=== PATIENT | female | born 1955 | race Two or more races ===

== ENCOUNTER 2021-12-20 14:08 | Outpatient (CLI) | payer OTHER | END 2021-12-20 14:16 | disposition home or self-care (01) | LOC: RAD 14:08 | PROVIDERS: ATTEND Internal Medicine | DX: Z01.810 Encounter for preprocedural cardiovascular examination (principal); I10 Essential (primary) hypertension; M54.50 Low back pain, unspecified; E03.9 Hypothyroidism, unspecified; E78.9 Disorder of lipoprotein metabolism, unspecified; E55.9 Vitamin D deficiency, unspecified; J40 Bronchitis, not specified as acute or chronic; J44.9 Chronic obstructive pulmonary disease, unspecified; F17.200 Nicotine dependence, unspecified, uncomplicated; Z12.31 Encounter for screening mammogram for malignant neoplasm of breast; Z13.820 Encounter for screening for osteoporosis ==

== ENCOUNTER 2022-11-30 06:48 | Emergency (ER) | payer OTHER ==
[~2022-11-30] VITALS: Ht 160 cm; Wt 77.1 kg
[2022-11-30] MEDS ORDERED: PROAIR RESPICL90 MCG (07:26)
[2022-11-30] MEDS ORDERED: CIPRO500 MG PO (09:45)
[2022-11-30] MEDS ORDERED: PYRIDIUM DS200 MG PO (09:45)
== END 2022-11-30 09:55 | disposition home or self-care (01) ==
LOC: ER 06:48
DX: N39.0 Urinary tract infection, site not specified (principal); Z91.041 Radiographic dye allergy status; J44.9 Chronic obstructive pulmonary disease, unspecified; F10.20 Alcohol dependence, uncomplicated

== ENCOUNTER 2023-01-18 09:30 | Outpatient (CLI) | payer OTHER ==
[~2023-01-18 09:30] MED LIST: CIPRO500 MG PO; PROAIR RESPICL90 MCG; PYRIDIUM DS200 MG PO
== END 2023-01-18 09:37 | disposition home or self-care (01) ==
LOC: MAMO-SONO 09:30
PROVIDERS: ATTEND Internal Medicine
DX: N60.11 Diffuse cystic mastopathy of right breast (principal); Z12.31 Encounter for screening mammogram for malignant neoplasm of breast

== ENCOUNTER → 2023-03-17 | Outpatient (CLI) | payer OTHER | END | disposition home or self-care (01) | LOC: SONOGRAMA 13:12 | PROVIDERS: ATTEND Surgery | DX: C50.111 Malignant neoplasm of central portion of right female breast (principal); Z17.0 Estrogen receptor positive status [ER+] ==

== ENCOUNTER 2023-06-14 07:59 | Outpatient (CLI) | payer OTHER | END 2023-06-14 08:03 | disposition home or self-care (01) | LOC: NUCLEAR 07:59 | PROVIDERS: ATTEND Internal Medicine Hematology & Oncology | DX: C50.411 Malignant neoplasm of upper-outer quadrant of right female breast (principal); Z17.0 Estrogen receptor positive status [ER+] | CPT/HCPCS: 78815; A9552 ==

== ENCOUNTER 2023-08-04 06:33 | Day surgery (SDC) | payer OTHER ==
[2023-08-02 12:04] LABS: HEMATOCRIT 46.5 % (36.0-45.00); HEMOGLOBIN 15.9 g/dL (12.0-15.00); MEAN CELL VOLUME 100.4 fL (80.00-100.00); MEAN CORPUSCULAR HEMOGLOBIN 34.4 pg (27.00-32.0); MEAN CORPUSCULAR HGB CONC 34.2 g/dl (32.0-36.0); PLATELET COUNT 177 K/uL (150-450); RED BLOOD COUNT 4.63 M/uL (4.00-6.00); RED CELL DISTRIBUTION WIDTH 12.3 % (11.5-14.5)
[2023-08-02 12:05] LABS: URINE APPEARANCE Clear; URINE BILIRRUBIN Negative (NEGATIVE); URINE COLOR Yellow; URINE GLUCOSE Negative (NEGATIVE); URINE LEUKOCYTE Negative; URINE NITRATE Negative; URINE PROTEIN Negative (NEGATIVE)
[2023-08-02 12:06] LABS: URINE BACTERIA 385.5 uL (0.0-1933); URINE EPITHELIAL CELLS 91.4 uL (0.0-38.8); URINE RBC 18.6 uL (0.0-20.8); URINE WBC 4.6 uL (0.0-23.2)
[2023-08-02 12:13] LABS: URINE BLOOD TRACES
[2023-08-02 12:35] LABS: INR 1.03; PROTHROMBIN TIME 10.8 SECONDS (9.0-11.5)
[2023-08-02 12:49] LABS: ALBUMIN 3.5 gm/dL (3.4-5.0); BILIRUBIN TOTAL 0.63 mg/dL (0.3-1.2); CALCIUM 9.1 mg/dL (8.5-10.1); CREATININE SERUM 0.76 mg/dL (0.55-1.02); GFR 75.68; GLOBULINA 4.2 G/DL (2.4-3.5); POTASSIUM 4.58 mEq/L (3.5-5.1); TOTAL PROTEIN 7.7 gm/dL (6.4-8.2)
[~2023-08-04] VITALS: Ht 160 cm; Wt 76.7 kg
[2023-08-04] MEDS ORDERED: TRAM1TAB98 PO (12:22)
== END 2023-08-04 15:40 | disposition home or self-care (01) ==
LOC: CIR.AMB 06:33
PROVIDERS: ATTEND Surgery
DX: C50.911 Malignant neoplasm of unspecified site of right female breast (principal); Z91.041 Radiographic dye allergy status

== ENCOUNTER 2023-08-14 09:28 | Outpatient (CLI) | payer OTHER ==
[~2023-08-14 09:28] MED LIST changes: +TRAM1TAB98 PO
== END 2023-08-14 09:29 | disposition home or self-care (01) ==
LOC: NUCLEAR 09:28
PROVIDERS: ATTEND Surgery
DX: M79.602 Pain in left arm (principal)

== ENCOUNTER 2023-08-19 14:55 | Emergency (ER) | payer OTHER ==
[~2023-08-19] VITALS: Ht 160 cm; Wt 72.6 kg
[2023-08-19] MEDS ORDERED: TRELEGY ELLIPT1 EAC1 IH (15:25)
== END 2023-08-19 17:35 | disposition home or self-care (01) ==
LOC: ER 14:55
DX: S61.451A Open bite of right hand, initial encounter (principal); W54.0XXA Bitten by dog, initial encounter; Y93.89 Activity, other specified; Y92.89 Other specified places as the place of occurrence of the external cause; Y99.8 Other external cause status

== ENCOUNTER 2023-08-29 09:49 | Inpatient (IN) | payer OTHER ==
[~2023-08-29] VITALS: Ht 160 cm; Wt 72.6 kg
[~2023-08-29 09:49] MED LIST changes: +TRELEGY ELLIPT1 EAC1 IH
--- NOTE | 2023-08-29 10:02 | NUR ---
SE RECIBE FEMINA ALERTA Y ORIENTADA X3 EN AMBULANCIA QUIEN REFIERE VOMITOS Y MOLESTIA AL TRAGAR. PTE DE CANCER DE MAMA, AGUSTÍN GARCIA PRIMERA QUIMIOTERAPIA EL . PTE DE DR MIRZA MCLEAN. SE MIDEN S/V Y SE UBICA.
--- NOTE | 2023-08-29 10:12 | NUR ---
RN TERRAZAS EDUCA A PTE SOBRE TX A RECIBIR EN EL AREA LA MISMA REFIERE ENTENDER, SE REALIZAN MUESTRAS AYLA ORDEN MEDICA Y SE ENVIAN DE FORMA INMEDIATA. SE CANALIZA PTE Y SE COOCAN MEDICAMENTOS IVFLUID POR ORDEN MEDICA, SE HECTOR PTE EN ESPERA DE RESULTADOS DE LAB.
[2023-08-29] MEDS ORDERED: ONDANSETRON HCL 2 MG/ML VIAL IV ONE (10:15)
[2023-08-29] MEDS ORDERED: FAMOtidine 10 MG/ML (4ML VIAL) IV ONE (10:15)
[2023-08-29] MEDS ORDERED: 0.9 % SODIUM CHLORIDE 1,000 ML IV SCH ×2 (10:15→18:45)
[2023-08-29] MEDS ORDERED: RINGERS SOLUTION,LACTATED 1,000 ML IV STA (10:20)
[2023-08-29 11:17] LABS: HEMATOCRIT 41.6 % (36.0-45.00); HEMOGLOBIN 14.3 g/dL (12.0-15.00); MEAN CELL VOLUME 100.6 fL (80.00-100.00); MEAN CORPUSCULAR HEMOGLOBIN 34.5 pg (27.00-32.0); MEAN CORPUSCULAR HGB CONC 34.3 g/dl (32.0-36.0); PLATELET COUNT 144 K/uL (150-450); RED BLOOD COUNT 4.13 M/uL (4.00-6.00)
[2023-08-29 11:40] LABS: ALBUMIN 3.3 gm/dL (3.4-5.0); BILIRUBIN TOTAL 1.46 mg/dL (0.3-1.2); BILIRUBIN,CONJUGATED 0.48 mg/dL (0.0-0.2); BILIRUBIN,UNCONJUGATED 0.98 mg/dL (0.0-0.6); CREATININE SERUM 1.17 mg/dL (0.55-1.02); POTASSIUM 4.05 mEq/L (3.5-5.1); TOTAL PROTEIN 7.9 gm/dL (6.4-8.2)
[2023-08-29] MEDS ORDERED: METOCLOPRAMIDE HCL 5 MG/ML VIAL IV STA (14:12)
[2023-08-29] MEDS ORDERED: MAG HYDROX/ALUMINUM HYD/SIMETH 30 ML BLIST.PACK PO STA (14:22)
[2023-08-29] MEDS ORDERED: FILGRASTIM-AAFI 480 MCG/0.8 ML SYRINGE SUBCUTANEO STA (18:38)
[2023-08-29] MEDS ORDERED: DIPHENHYDRAMINE HCL 12.5 MG/5 ML BLIST.PACK PO SCH (18:43)
[2023-08-29] MEDS ORDERED: LIDOCAINE HCL 20 MG/ML BLIST.PACK MM SCH (18:46)
[2023-08-29] MEDS ORDERED: ONDANSETRON HCL 4 MG in DEXTROSE 5 % IN WATER 50 ML IV PRN (19:00)
[2023-08-29] MEDS ORDERED: DEXTROSE 50 % IN WATER 0.5 G/ML DISP.SYRIN IV PRN (19:00)
[2023-08-29] MEDS ORDERED: INSULIN LISPRO 1,000 UNIT/10 ML UNITS SUBCUTANEO PRN (19:00)
[2023-08-29 20:16] LABS: URINE APPEARANCE Clear; URINE BILIRRUBIN Negative (NEGATIVE); URINE BLOOD Negative; URINE COLOR Yellow; URINE GLUCOSE Negative (NEGATIVE); URINE LEUKOCYTE Negative; URINE NITRATE Negative; URINE PROTEIN Trace (NEGATIVE)
[2023-08-29 20:20] LABS: URINE BACTERIA 333.8 uL (0.0-1933); URINE EPITHELIAL CELLS 27.5 uL (0.0-38.8); URINE RBC 13.9 uL (0.0-20.8)
[2023-08-29] MEDS ORDERED: PANTOPRAZOLE SODIUM 40 MG/VIAL VIAL IV SCH (21:00)
[2023-08-30 05:11] LABS: HEMATOCRIT 35.5 % (36.0-45.00); HEMOGLOBIN 12.2 g/dL (12.0-15.00); MEAN CORPUSCULAR HGB CONC 34.3 g/dl (32.0-36.0); RED BLOOD COUNT 3.58 M/uL (4.00-6.00); RED CELL DISTRIBUTION WIDTH 11.9 % (11.5-14.5)
[2023-08-30 05:26] LABS: PLATELET COUNT 124 K/uL (150-450)
[2023-08-30 05:31] LABS: INR 1.22; PARTIAL THROMBOPLASTIN TIME 37.1 SECONDS (22.0-34.0); PROTHROMBIN TIME 12.6 SECONDS (9.0-11.5)
[2023-08-30 05:47] LABS: ALBUMIN 3.4 gm/dL (3.4-5.0); BILIRUBIN TOTAL 0.18 mg/dL (0.3-1.2); CALCIUM 9.6 mg/dL (8.5-10.1); CREATININE SERUM 1.23 mg/dL (0.55-1.02); GFR 43.42; GLOBULINA 4.1 G/DL (2.4-3.5); MAGNESIUM 1.5 mg/dL (1.8-2.4); POTASSIUM 4.4 mEq/L (3.5-5.1); TOTAL PROTEIN 7.5 gm/dL (6.4-8.2)
[2023-08-30] MEDS ORDERED: NYSTATIN 5 ML BLIST.PACK PO SCH ×2 (08:00)
[2023-08-30] MEDS ORDERED: CEFTRIAXONE SODIUM 2,000 MG in DEXTROSE 5 % IN WATER 100 ML IV SCH (09:00)
[2023-08-30] MEDS ORDERED: LEVALBUTEROL HCL 0.63 MG/3 ML SOLUTION IH SCH (09:00)
[2023-08-30] MEDS ORDERED: FILGRASTIM-AAFI 480 MCG/0.8 ML SYRINGE SUBCUTANEO SCH ×2 (09:00)
[2023-08-30] MEDS ORDERED: LIDOCAINE HCL 20 MG/ML BLIST.PACK MM SCH (12:00)
[2023-08-30] MEDS ORDERED: MAGNESIUM SULFATE/D5W 100 ML IV ONE (12:15)
[2023-08-31 07:20] LABS: MEAN CELL VOLUME 100.4 fL (80.00-100.00); MEAN CORPUSCULAR HEMOGLOBIN 34.3 pg (27.00-32.0); MEAN CORPUSCULAR HGB CONC 34.2 g/dl (32.0-36.0); RED BLOOD COUNT 3.48 M/uL (4.00-6.00); RED CELL DISTRIBUTION WIDTH 11.6 % (11.5-14.5)
[2023-08-31 08:31] LABS: PLATELET COUNT 122 K/uL (150-450)
[2023-08-31] MEDS ORDERED: DIPHENHYDRAMINE HCL 150 MG BC SCH (12:00)
[2023-08-31] MEDS ORDERED: NYSTATIN BC SCH (12:00)
[2023-08-31] MEDS ORDERED: LIDOCAINE HCL BC SCH (12:00)
[2023-08-31] MEDS ORDERED: FLUCONAZOLE IN NACL,ISO-OSM 400 MG/200 ML PIGGYBAG IV ONE (15:15)
[2023-08-31] MEDS ORDERED: FLUCONAZOLE IN NACL,ISO-OSM 100 ML IV SCH (17:00)
[2023-08-31] MEDS ORDERED: VANCOMYCIN HCL 1,000 MG VIAL IV SCH (17:00)
[2023-08-31] MEDS ORDERED: CEFEPIME HCL 2,000 MG VIAL IV SCH (21:00)
[2023-09-01 05:34] LABS: HEMATOCRIT 34.5 % (36.0-45.00); HEMOGLOBIN 11.8 g/dL (12.0-15.00); MEAN CELL VOLUME 100.1 fL (80.00-100.00); MEAN CORPUSCULAR HEMOGLOBIN 34.1 pg (27.00-32.0); MEAN CORPUSCULAR HGB CONC 34.1 g/dl (32.0-36.0); RED BLOOD COUNT 3.44 M/uL (4.00-6.00)
[2023-09-01 05:58] LABS: ALBUMIN 2.3 gm/dL (3.4-5.0); BILIRUBIN TOTAL 0.37 mg/dL (0.3-1.2); CALCIUM 7.9 mg/dL (8.5-10.1); CREATININE SERUM 0.59 mg/dL (0.55-1.02); GFR 101.36; GLOBULINA 3.2 G/DL (2.4-3.5); MAGNESIUM 1.7 mg/dL (1.8-2.4); POTASSIUM 3.17 mEq/L (3.5-5.1); TOTAL PROTEIN 5.5 gm/dL (6.4-8.2)
[2023-09-01 06:15] LABS: PLATELET COUNT 117 K/uL (150-450)
[2023-09-01 07:05] LABS: C-REACTIVE PROTEIN 14.9 MG/DL (0.00-0.29); PHOSPHOROUS 1.7 mg/dL (2.5-4.9)
[2023-09-01] MEDS ORDERED: MAGNESIUM SULFATE/D5W 100 ML IV ONE (12:10)
[2023-09-01] MEDS ORDERED: POTASSIUM PHOS,M-BASIC-D-BASIC 18 MM in 0.9 % SODIUM CHLORIDE 250 ML IV NR (12:10)
[2023-09-02 08:08] LABS: URINE APPEARANCE Clear; URINE BILIRRUBIN Negative (NEGATIVE); URINE BLOOD Negative; URINE COLOR Yellow; URINE GLUCOSE Negative (NEGATIVE); URINE LEUKOCYTE Negative; URINE NITRATE Negative; URINE PROTEIN Negative (NEGATIVE); URINE UROBILINOGEN 0.2 E.U./dl
[2023-09-02 08:13] LABS: URINE BACTERIA 20.1 uL (0.0-1933); URINE EPITHELIAL CELLS 65.4 uL (0.0-38.8); URINE RBC 13.3 uL (0.0-20.8); URINE WBC 14.9 uL (0.0-23.2)
[2023-09-03 05:42] LABS: MEAN CELL VOLUME 99.6 fL (80.00-100.00); MEAN CORPUSCULAR HEMOGLOBIN 34.1 pg (27.00-32.0); MEAN CORPUSCULAR HGB CONC 34.2 g/dl (32.0-36.0); RED BLOOD COUNT 3.51 M/uL (4.00-6.00); RED CELL DISTRIBUTION WIDTH 12.1 % (11.5-14.5)
[2023-09-03 05:55] LABS: PLATELET COUNT 124 K/uL (150-450)
[2023-09-05 06:59] LABS: HEMATOCRIT 34.3 % (36.0-45.00); HEMOGLOBIN 11.7 g/dL (12.0-15.00); MEAN CELL VOLUME 100.3 fL (80.00-100.00); MEAN CORPUSCULAR HEMOGLOBIN 34.2 pg (27.00-32.0); PLATELET COUNT 142 K/uL (150-450); RED BLOOD COUNT 3.41 M/uL (4.00-6.00); RED CELL DISTRIBUTION WIDTH 12.1 % (11.5-14.5)
[2023-09-05 07:08] LABS: ALBUMIN 2.4 gm/dL (3.4-5.0); BILIRUBIN TOTAL 0.58 mg/dL (0.3-1.2); CALCIUM 7.9 mg/dL (8.5-10.1); CREATININE SERUM 0.57 mg/dL (0.55-1.02); GFR 105.48; GLOBULINA 3.6 G/DL (2.4-3.5); PHOSPHOROUS 3.5 mg/dL (2.5-4.9); POTASSIUM 3.37 mEq/L (3.5-5.1)
[2023-09-05 07:51] LABS: C-REACTIVE PROTEIN 3.91 MG/DL (0.00-0.29); MAGNESIUM 1.1 mg/dL (1.8-2.4)
== END 2023-09-05 11:23 | disposition home or self-care (01) | DRG 872 ==
LOC: ER 09:49 → MEDI 19:07
PROVIDERS: General Practice; Internal Medicine; Internal Medicine Hematology & Oncology; Internal Medicine Infectious Disease; ADMIT Internal Medicine; ATTEND Internal Medicine
PROC: BW21ZZZ Computerized Tomography (CT Scan) of Abdomen and Pelvis (ICD-10-PCS; principal; 2023-08-31)
DX: A41.9 Sepsis, unspecified organism (principal); N39.0 Urinary tract infection, site not specified; K51.30 Ulcerative (chronic) rectosigmoiditis without complications; D70.9 Neutropenia, unspecified; K12.30 Oral mucositis (ulcerative), unspecified; K12.1 Other forms of stomatitis; E83.42 Hypomagnesemia; D69.6 Thrombocytopenia, unspecified; D64.9 Anemia, unspecified; C50.019 Malignant neoplasm of nipple and areola, unspecified female breast; E86.0 Dehydration; Z78.9 Other specified health status; D70.1 Agranulocytosis secondary to cancer chemotherapy; T45.1X5A Adverse effect of antineoplastic and immunosuppressive drugs, initial encounter

== ENCOUNTER 2023-10-23 09:13 | Outpatient (CLI) | payer OTHER ==
[2023-10-23 09:59] LABS: HEMATOCRIT 39.3 % (36.0-45.00); HEMOGLOBIN 13.4 g/dL (12.0-15.00); MEAN CORPUSCULAR HEMOGLOBIN 36.2 pg (27.00-32.0); MEAN CORPUSCULAR HGB CONC 34.1 g/dl (32.0-36.0); PLATELET COUNT 203 K/uL (150-450); RED BLOOD COUNT 3.71 M/uL (4.00-6.00)
[2023-10-23 10:00] LABS: RED CELL DISTRIBUTION WIDTH 16.7 % (11.5-14.5)
[2023-10-23 10:23] LABS: ALBUMIN 3.3 gm/dL (3.4-5.0); BILIRUBIN TOTAL 0.82 mg/dL (0.3-1.2); CREATININE SERUM 0.76 mg/dL (0.55-1.02); GFR 75.68; GLOBULINA 4.7 G/DL (2.4-3.5); POTASSIUM 4.04 mEq/L (3.5-5.1)
== END 2023-10-23 09:14 | disposition home or self-care (01) ==
LOC: LAB 09:13
PROVIDERS: ATTEND Internal Medicine
DX: D64.9 Anemia, unspecified (principal); R74.01 Elevation of levels of liver transaminase levels

== ENCOUNTER 2024-01-12 06:30 | Day surgery (SDC) | payer OTHER ==
[2024-01-09 09:42] LABS: HEMOGLOBIN 14.1 g/dL (12.0-15.00); MEAN CELL VOLUME 111.3 fL (80.00-100.00); MEAN CORPUSCULAR HEMOGLOBIN 38.3 pg (27.00-32.0); MEAN CORPUSCULAR HGB CONC 34.4 g/dl (32.0-36.0); PLATELET COUNT 204 K/uL (150-450); RED BLOOD COUNT 3.68 M/uL (4.00-6.00); RED CELL DISTRIBUTION WIDTH 12.6 % (11.5-14.5)
[2024-01-09 09:48] LABS: URINE APPEARANCE Turbid; URINE BILIRRUBIN Negative (NEGATIVE); URINE BLOOD Moderate; URINE COLOR Yellow; URINE GLUCOSE Negative (NEGATIVE); URINE LEUKOCYTE Large; URINE NITRATE Positive; URINE PROTEIN Trace (NEGATIVE)
[2024-01-09 09:53] LABS: URINE EPITHELIAL CELLS 26.7 uL (0.0-38.8); URINE RBC 27.3 uL (0.0-20.8)
[2024-01-09 09:54] LABS: URINE BACTERIA > 9821.5 uL (0.0-1933); URINE WBC > 5548.3 uL (0.0-23.2)
[2024-01-09 10:04] LABS: PARTIAL THROMBOPLASTIN TIME 27.3 SECONDS (22.0-34.0); PROTHROMBIN TIME 10.5 SECONDS (9.0-11.5)
[2024-01-09 10:50] LABS: ALBUMIN 3.6 gm/dL (3.4-5.0); BILIRUBIN TOTAL 0.63 mg/dL (0.3-1.2); CALCIUM 9.5 mg/dL (8.5-10.1); CREATININE SERUM 0.76 mg/dL (0.55-1.02); GFR 75.46; GLOBULINA 4.5 G/DL (2.4-3.5); POTASSIUM 4.02 mEq/L (3.5-5.1); TOTAL PROTEIN 8.1 gm/dL (6.4-8.2)
[~2024-01-12 06:30] MED LIST changes: +ALDACTONE25 MG PO; +METFORMIN HCL1000 M3 PO; +PEPCID AC20 MG PO
[2024-01-12] MEDS ORDERED: CEFAZOLIN SODIUM 1,000 MG VIAL ONE (18:04)
[2024-01-12] MEDS ORDERED: CIPROFLOXACIN IN 5 % DEXTROSE 400 MG/200 ML PIGGYBAG IV ONE (20:58)
[2024-01-12] MEDS ORDERED: ENALAPRILAT DIHYDRATE 1.25 MG/ML VIAL IV ONE (23:24)
== END 2024-01-13 02:30 | disposition home or self-care (01) ==
LOC: CIR.AMB 06:30
PROVIDERS: ATTEND Surgery
DX: C50.811 Malignant neoplasm of overlapping sites of right female breast (principal); R92.0 Mammographic microcalcification found on diagnostic imaging of breast; Z91.041 Radiographic dye allergy status; I10 Essential (primary) hypertension; E11.9 Type 2 diabetes mellitus without complications
CPT/HCPCS: 19301; 38525; 19281; A9541; L8699

== ENCOUNTER 2024-11-22 11:55 | Emergency (ER) | payer OTHER ==
[~2024-11-22] VITALS: Ht 160 cm; Wt 77.1 kg
[2024-11-22] MEDS ORDERED: RINGERS SOLUTION,LACTATED 1,000 ML IV STA (13:22)
[2024-11-22] MEDS ORDERED: KETOROLAC TROMETHAMINE 30 MG VIAL IV STA (13:22)
[2024-11-22] MEDS ORDERED: KETOROLAC TROMETHAMINE 30 MG VIAL ONE (13:27)
[2024-11-22 14:10] LABS: BASO % 0.5 % (0.1-1.2); EOS # 0.05 (0.04-0.54); EOS % 0.5 % (0.7-7.0); HEMATOCRIT 46.8 % (34.1-44.9); HEMOGLOBIN 15.9 g/dL (11.2-15.7); LYMPH # 1.45 (1.18-3.74); LYMPH % 15.1 % (19.3-53.1); MEAN CORPUSCULAR HEMOGLOBIN 34.9 pg (25.6-32.2); MONO # 0.97 (0.24-0.82); MONO % 10.1 % (4.7-12.5); PLATELET COUNT 220 K/uL (163-369); RED BLOOD COUNT 4.55 M/uL (3.93-5.22); RED CELL DISTRIBUTION WIDTH 12.7 % (11.6-14.4)
[2024-11-22 14:35] LABS: INR 1.09; PROTHROMBIN TIME 11.8 SECONDS (9.0-11.5)
[2024-11-22 14:35] LABS: URINE APPEARANCE Turbid; URINE BILIRRUBIN Negative (NEGATIVE); URINE BLOOD Moderate; URINE COLOR Dark Yellow; URINE GLUCOSE Negative (NEGATIVE); URINE KETONE 15 (NEGATIVE); URINE LEUKOCYTE Large; URINE NITRATE Positive
[2024-11-22 14:36] LABS: URINE CAST 17.53 uL (0.0-1.40); URINE EPITHELIAL CELLS 151.5 uL (0.0-38.8); URINE RBC 16.7 uL (0.0-20.8)
[2024-11-22 14:38] LABS: INFLUENZA A AG NEGATIVE (NEGATIVE)
[2024-11-22 14:39] LABS: ALBUMIN 3.7 gm/dL (3.4-5.0); BILIRUBIN TOTAL 1.11 mg/dL (0.3-1.2); BILIRUBIN,CONJUGATED 0.35 mg/dL (0.0-0.2); BILIRUBIN,UNCONJUGATED 0.76 mg/dL (0.0-0.6); CALCIUM 9.7 mg/dL (8.5-10.1); CREATININE SERUM 1.43 mg/dL (0.55-1.02); GFR 36.38; POTASSIUM 3.86 mEq/L (3.5-5.1); TOTAL PROTEIN 8.6 gm/dL (6.4-8.2)
[2024-11-22 15:28] LABS: URINE BACTERIA > 9821.5 uL (0.0-1933); URINE PROTEIN 100 (NEGATIVE); URINE WBC > 5548.3 uL (0.0-23.2)
[2024-11-22] MEDS ORDERED: CEFTRIAXONE SODIUM 1,000 MG VIAL ONE (15:45)
[2024-11-22] MEDS ORDERED: CEFTRIAXONE SODIUM 1,000 MG VIAL IV ONE (15:45)
== END 2024-11-22 16:06 | disposition home or self-care (01) ==
LOC: ER 12:10
PROVIDERS: General Practice
DX: R51.9 Headache, unspecified (principal); N39.0 Urinary tract infection, site not specified; I10 Essential (primary) hypertension; E11.9 Type 2 diabetes mellitus without complications; Z79.84 Long term (current) use of oral hypoglycemic drugs; Z91.041 Radiographic dye allergy status
CPT/HCPCS: 36415; 70450; 70490; 93005; 96365; 99284; J0696; J1885

== ENCOUNTER → 2024-12-11 11:13 | Outpatient (CLI) | payer OTHER | END | disposition home or self-care (01) | LOC: NUCLEAR 11:13 | PROVIDERS: ATTEND Internal Medicine | DX: M81.0 Age-related osteoporosis without current pathological fracture (principal) ==